=== PATIENT | female | born 1960 | race Caucasian/White ===

== ENCOUNTER 2017-03-05 05:45 | Day surgery (SDC) | payer OTHER ==
[~2017-03-05] VITALS: Ht 167.6 cm; Wt 74.4 kg
[~2017-03-05 05:45] MED LIST: BIOTIN5 M1 PO; CINNAMON500 MG PO; CIPRO500 MG PO; DIFLUCAN200 MG PO; GLUCOPHAGE500 MG PO; LISINOPRIL-HCT1 EAC2 PO; LORAZEPAM1 MG PO; MAGNESIUM400 M1 PO; NORCO 5-325 TA1 EACH PO; ONCE DAILY1 EACH PO; ONDANSETRON ODT8 MG PO; PEPCID20 MG PO; STOOL SOFTENER100 M1 PO
--- NOTE | 2017-03-05 06:33 | NUR ---
comfortable denies any needs. iv patent.
--- NOTE | 2017-03-05 07:22 | NUR ---
TO BR AND WARM BLANKET ON ON RETURN TO BED.
--- NOTE | 2017-03-05 09:05 | NUR ---
03/05/17 0905 Oneida Guthrie 0843 RESP EVEN AND UNLABORED. 0846 O2 SAT 100%, O2 REMOVED. 0854 PT REPORTS PAIN 05/27, PAIN MEDICATION 0900 PT REPORTS PAIN, "A LITTLE WORSE." PAIN MEDICAITON GIVEN. OT TALKING AND SITTING UP IN BED DRINKING WATER.
--- NOTE | 2017-03-05 14:32 | OR ---
[facility] [address] [place], [place] [address] Signed DATE OF OPERATION: 03/05/2017 SURGEON: Denise Flor MD PREOPERATIVE DIAGNOSES: 1. Right subclavian Twga-P-Aiflhjwa. 2. History of B-cell lymphoma. POSTOPERATIVE DIAGNOSES: 1. Right subclavian Glhi-Y-Pddwsbsf. 2. History of B-cell lymphoma. PROCEDURE: Removal of right subclavian Hxbx-Q-Hogpiufm. ESTIMATED BLOOD LOSS: None. FINDINGS: The Jjyv-V-Kdufjvbz was fractured next to the hub. I did not see anywhere underneath the clavicle where it may have been fractured. The entire length of the catheter and hub were removed confirmed by the radiopaque tip on the catheter. INDICATIONS: Ezequiel is a 56-year-old female, who we diagnosed with B-cell lymphoma back in 2015. I placed her Hpet-N-Fgvcjejm in June of 2015. She has been through her chemotherapy. She is now on maintenance therapy. When they accessed her Ixkz-X-Vmlgfezo the last time, it was leaking around the hub. There was a question whether or not there could be a tiny leak underneath the right clavicle as well. In the office, I met with Ezequiel and her . We discussed the above findings in detail. I explained to them the concept of a fractured catheter and the idea that sometimes they have to be retrieved using an angiogram. Otherwise, we removed them with IV sedation and local anesthetic. They understand the nature of the surgery along with the risks including, but not limited kalli bleeding, infection, scarring, change in contour of the skin, fracture of the catheter as well as embolization requiring retrieval. They had expressed understanding and wished to proceed. PROCEDURE NOTE: I met with Ezequiel and her in the preop area. We all confirmed her catheter on the right chest wall. She was then taken into the operating room and placed in the Electronically Signed By: DENISE FLOR MD 03/05/17 1432 PATIENT NAME: EZEQUIEL LOPEZ OPERATIVE REPORT DATE OF : 64 PHYSICIAN: DENISE FLOR MD REPORT #: [id number] REPORT IS CONFIDENTIAL AND NOT TO BE RELEASED WITHOUT AUTHORIZATION [facility] [address] [place], [place] [address] Signed supine position under monitored anesthesia care per our nurse school photographs detailer. She was then prepped and draped in the usual sterile fashion. She was given preoperative antibiotics along with subcutaneous heparin. SCDs were utilized. She was then prepped and draped in the usual sterile fashion. Local anesthetic was then injected in around the catheter hub. We utilized her previous incision and opened that sharply with our #15 blade knife. This was carried down around the catheter bluntly and with the cautery. The three Prolene sutures were divided. We placed a 2-0 Prolene pursestring suture around the catheter, as it entered the tissue underneath the clavicle. The catheter was easily withdrawn without any resistance whatsoever. The pursestring suture was tied down immediately to prevent any air embolization or backbleeding. We inspected the hub and catheter carefully. There was a fracture just distal to the hub within a centimeter. However, we did not see any fracture in the catheter that would be underneath the clavicle. We confirmed the full length of the catheter including the radiopaque tip. After this, the wound was irrigated and suctioned out until clear. We closed the dermis with interrupted 3-0 Monocryl sutures. The skin edges were reapproximated with a running 6-0 fast absorbing plain gut suture. Dry gauze and tape were then applied. Ezequiel was then transferred to her hospital bed and taken to recovery room in stable condition. Denise Flor MD ALB/MODL /[id number] cc: DO Noam Aponte MD Electronically Signed By: DENISE FLOR MD 03/05/17 1432 PATIENT NAME: EZEQUIEL LOPEZ OPERATIVE REPORT DATE OF : 64 PHYSICIAN: DENISE FLOR MD REPORT #: [id number] REPORT IS CONFIDENTIAL AND NOT TO BE RELEASED WITHOUT AUTHORIZATION
[2017-04-02] MEDS ORDERED: ATIVAN1 MG PO (08:49)
[2017-04-02] MEDS ORDERED: AMBIEN5 MG PO (08:51)
== END 2017-03-05 09:58 | disposition home or self-care (01) ==
LOC: OPS 05:45 → DS 05:45
PROVIDERS: Colon & Rectal Surgery
PROC: 0JPT3WZ Removal of Totally Implantable Vascular Access Device from Trunk Subcutaneous Tissue and Fascia, Percutaneous Approach (ICD-10-PCS; principal; 2017-03-05 06:45)
DX: Z45.2 Encounter for adjustment and management of vascular access device (principal); I10 Essential (primary) hypertension; E78.5 Hyperlipidemia, unspecified; G40.909 Epilepsy, unspecified, not intractable, without status epilepticus; I42.9 Cardiomyopathy, unspecified; E11.9 Type 2 diabetes mellitus without complications; E11.42 Type 2 diabetes mellitus with diabetic polyneuropathy; Z85.72 Personal history of non-Hodgkin lymphomas; Z85.41 Personal history of malignant neoplasm of cervix uteri; Z98.51 Tubal ligation status; Z88.8 Allergy status to other drugs, medicaments and biological substances; Z98.890 Other specified postprocedural states; Z79.899 Other long term (current) drug therapy
CPT/HCPCS: 00532; J0690; J1644; J2405; J2704; J3010; J7120

== ENCOUNTER 2017-03-15 20:35 | Emergency (ER) | payer OTHER ==
[~2017-03-15] VITALS: Ht 167.6 cm; Wt 74.4 kg
[2017-03-15] MEDS ORDERED: MAGNESIUM500 MG PO (23:11)
[2017-03-15] MEDS ORDERED: AZO STANDARD97.5 MG PO (23:12)
[2017-03-15] MEDS ORDERED: GLUCOSAMINE S1000 M1 PO (23:12)
[2017-03-15] MEDS ORDERED: VITAMIN C1000 MG PO (23:12)
[2017-03-15] MEDS ORDERED: KEFLEX500 MG PO (23:30)
[2017-03-15] MEDS ORDERED: PYRIDIUM200 MG PO (23:30)
[2017-04-02] MEDS ORDERED: ATIVAN1 MG PO (08:49)
[2017-04-02] MEDS ORDERED: AMBIEN5 MG PO (08:51)
== END 2017-03-15 23:42 | disposition home or self-care (01) ==
LOC: ED 20:35
DX: N39.0 Urinary tract infection, site not specified (principal); Z88.1 Allergy status to other antibiotic agents; Z79.899 Other long term (current) drug therapy
CPT/HCPCS: 81001; 87088; 99283

== ENCOUNTER 2019-01-22 08:18 | Emergency (ER) | payer OTHER ==
[~2019-01-22] VITALS: Ht 167.6 cm; Wt 70.3 kg
[~2019-01-22 08:18] MED LIST changes: +AMBIEN5 MG PO; +APPLE CIDER VI300 MG PO; +ATIVAN1 MG PO; +AZO STANDARD97.5 MG PO; +GLUCOSAMINE S1000 M1 PO; +KEFLEX500 MG PO; +MAGNESIUM500 MG PO; +OMEGA 3 1,0001 EACH PO; +OSTEO BI-FLEX1 EAC2 PO; +POTASSIUM99 M1 PO; +PYRIDIUM200 MG PO; +TYLENOL325 MG PO; +VITAMIN B COMP1 EACH PO; +VITAMIN B-150 MG PO; +VITAMIN B-650 MG PO; +VITAMIN B122500 MC1 PO; +VITAMIN C1000 MG PO
== END 2019-01-22 11:45 | disposition home or self-care (01) ==
LOC: ED 08:18
DX: J10.1 Influenza due to other identified influenza virus with other respiratory manifestations (principal); Z88.1 Allergy status to other antibiotic agents; Z79.899 Other long term (current) drug therapy; Z79.84 Long term (current) use of oral hypoglycemic drugs
CPT/HCPCS: 85025; 87081; 87502; 87880; 96374; 99283-25; J1885; J7030

== ENCOUNTER 2020-04-05 10:20 | Day surgery (SDC) | payer OTHER ==
[~2020-04-05] VITALS: Ht 167.6 cm; Wt 65.0 kg
[~2020-04-05 10:20] MED LIST changes: +ZOLPIDEM TARTRA10 MG PO
--- NOTE | 2020-04-05 11:16 | NUR ---
LAST WEEK HAD SIEZURE AND FELL. BRUISING L UPPER ARM.
--- NOTE | 2020-04-05 12:17 | NUR ---
04/05/20 Niecy Sequeira 1208-PATIENT ARRIVED TO PACU ON 2L NC RR EVEN LAYING PRONE AROUSES TO VERBAL STIMULI DROWSY DENIES PAIN OR NAUSEA. DRESSING TO BACK CDI WITH BANDAID IVF INFUSING. 1215-GLUCOSE CHECKED 92. PATIENT DENIES PAIN OR NAUSEA. PLACED ON RA RR EVEN 100%
--- NOTE | 2020-04-10 13:55 | PATH ---
[facility] [address] [facility] [address] [place], [place] [address] Signed SPECIMEN(S): A BONE MARROW - CORE SPECIMEN(S): B BONE MARROW - ASPIRATION SPECIMEN(S): C COMPREHENSIVE FLOW CYTOMETRY ONLY IN BM EDTA CLINICAL HISTORY: Bone marrow biopsy. 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 See attached. E83.42 (hypomagnesemia) DIAGNOSIS SUMMARY: A. Peripheral blood - Pancytopenia, absolute neutrophil count is 1,540/ul. - No circulating blasts or atypical lymphocytes are identified. B. Bone marrow biopsy and aspiration: - Normocellular marrow, 35%, with 1% blasts. - Trilineage hematopoiesis with erythroid hyperplasia and mild myeloid dyspoiesis. - No malignancy is identified by morphology, flow cytometry, or immunohistochemistry staining. - Increased marrow iron stores. No ring sideroblasts are identified. - See Diagnostic Comment. DIAGNOSTIC COMMENT: No lymphoma or other malignancy is detected by morphology, flow cytometry, or immunohistochemistry staining. The erythroid hyperplasia and the myeloid hypoplasia with mild dyspoiesis are likely related to recent chemotherapy. Clinical correlation is required. JLP:C2NR HISTORICAL SUMMARY: 59-year-old female with 2016 history of left axillary lymph node follicular lymphoma (see [id number]; 07/07/2015). Clinically, there is concern of transformation to DLBCL. This bone marrow is for diagnosis and re-staging. PERIPHERAL BLOOD: HEMOGRAM (04/05/2020): WBC 3.5 K/ul, RBC 2.90 M/ul, HGB 8.5 g/dl, HCT 25.0%, MCV 86.3 fl, MCH 29 pg, MCHC 34 g/dl, PLT 82 K/ul. AUTOMATED DIFFERENTIAL COUNT: Neutrophils 44.0%, lymphocytes 35.9%, monocytes 18.5%, eosinophils 1.1%, basophils 0.5%. The red blood cells are normocytic and normochromic with minimal PATIENT NAME: EZEQUIEL LOPEZ PATHOLOGY DATE OF : 64 REPORT #: [id number] PHYSICIAN: ANNE PATHOLOGY PCP: SKYLA FORREST DO REPORT IS CONFIDENTIAL AND NOT TO BE RELEASED WITHOUT AUTHORIZATION [facility] [address] [place], [place] [address] Signed anisopoikilocytosis. The neutrophils are unremarkable. Lymphocytes are composed of small mature appearing forms. Platelets appear decreased in number. No platelet clumping or RBC microangiopathic effect identified. No blasts are identified. BONE MARROW: ASPIRATE SMEARS/TOUCH IMPRINT: The aspirate smears are adequate for evaluation. Erythroid precursors are increased in number but show adequate maturation with essentially normal morphology. The myeloid precursors are left shifted in maturation with some dyspoietic morphology. There is no increase in blasts. Megakaryocytes are identified with a normal morphology. BONE MARROW DIFFERENTIAL COUNT (300 cells): Blasts 1%, promyelocytes 3%, myelocytes 7%, metamyelocytes/bands/segs 14%, erythroid precursors 60%, lymphocytes 7%, monocytes 4%, eosinophils 3%, plasma cells 1%. M:E ratio: Inverted at 0.46:1 BONE MARROW CORE BIOPSY/ASPIRATE CLOT/CELL BLOCK: The aspirate clot section is mostly blood with a small marrow spicule and is sub-optimal for evaluation. The core biopsy demonstrates unremarkable trabecular bone. The cellularity is normal for age, estimated at 35%. The erythroid precursors are increased in numbers. The myeloid precursors are decreased in number with a left shifted maturation and with mild dyspoiesis. Blasts are not increased. Megakaryocytes appear normal in number and in morphology. No granulomas, atypical lymphoid aggregates or foreign malignant cells are detected. SPECIAL STAINS (with adequate controls): - Iron (aspirate smear): Increased. No ring sideroblasts are identified. - Iron (aspirate clot): Increased. IMMUNOHISTOCHEMISTRY STAINS (performed on block A1 with adequate controls). - PAX 5 (B-cells): less than 1%, no atypical aggregates - CD3 (T-cells): 4-5%, no atypical aggregates. FLOW CYTOMETRY: Bone marrow, flow cytometry: - No diagnostic abnormal populations are identified by flow cytometry. - See Comment. COMMENT: The majority of the gated lymphocytes are T-cells with a normal marking pattern. No significant number of B-cells are identified. Blasts are mildly increased at 2.7% with no aberrant marking. No aberrant marking is detected in the myeloid or monocyte gate areas. Plasma PATIENT NAME: EZEQUIEL LOPEZ PATHOLOGY DATE OF : 64 REPORT #: [id number] PHYSICIAN: ANNE PATHOLOGY PCP: SKYLA FORREST DO REPORT IS CONFIDENTIAL AND NOT TO BE RELEASED WITHOUT AUTHORIZATION [facility] [address] [facility] [address] [place], [place] [address] Signed cells are not increased. FLOW CYTOMETRY ANALYSIS: FLOW DIFFERENTIAL (% Total CD45 vs. SSC gating): Myeloid 67%; Lymphoid 12%; Monocyte 4%; Dim CD45/Blast: 2.7%. Cell Count: 5.1 x 10*3/uL. POPULATION ANALYSIS: BLASTS: Analysis of the dim CD45 gate demonstrates 2.7% myeloblasts by CD34/CD117. LYMPHOID CELLS: The lymphocyte gate comprises 12% of total events and includes 89% T-cells with a CD4:CD8 ratio of 1.6:1 and normal krishnan T-cell antigen expression. B-cells are essentially absent. The remainders are NK-cells. MYELOID CELLS: The myeloid population comprises 67% of the total events. Some decreased SSC, some decreased CD10 expression and an atypical maturation pattern in the CD13 vs CD16 plot are observed. MONOCYTES: The monocyte population comprises 4% of the total events. Monocytes are not increased. Some increased expression of CD56 is observed. PLASMA CELLS: 0.2% plasma cells are detected in the screening gate neg-dimCD45/CD38. Plasma cells are CD45 dim and positive for CD19. ANTIBODIES USED: KAPPA, LAMBDA, CD20, CD10, CD19, CD23, CD38, FMC7, CD16, CD56, CD8, CD5, CD2, CD4, CD7, CD3, CD14, CD33, CD13, HLADR, CD34, CD117, CD15, CD45: TOTAL ANTIBODIES USED: 24. JNB FINAL DIAGNOSIS PERFORMED BY: Shahriar Lynn MD, Apr 06 2020 11:56AM GROSS DESCRIPTION: Two specimens are received in two containers, labeled "SS." A. The specimen, labeled "SS, core," is received in formalin and consists of two cores of brown-whitman bone (0.9-1.8 cm in length x 0.2 cm in diameter). The specimen is submitted entirely in cassette (A1) following decalcification in Immunocal. B. The specimen, labeled "SS, clot," is received in formalin and consists of a portion of red-brown clot (1.5 x 1.5 x 0.3 cm in aggregate). The specimen is submitted entirely in cassette (B1). AC (under the direct supervision of a pathologist) The Gross Description was prepared using a voice recognition system. The report was reviewed for accuracy; however, sound-alike word errors, addition and/or deletions may occur. If there is any question about this report, please contact Client Services. PATIENT NAME: EZEQUIEL LOPEZ PATHOLOGY DATE OF : 64 REPORT #: [id number] PHYSICIAN: ANNE MICHAELS PCP: SKYLA FORREST DO REPORT IS CONFIDENTIAL AND NOT TO BE RELEASED WITHOUT AUTHORIZATION [facility] [address] [place], [place] [address] Signed ADDITIONAL NOTES: Immunohistochemical and/or in situ hybridization studies were performed on this case with the appropriate positive controls that react as expected. This test was developed and its performance characteristics determined by [facility]. It has not been cleared or approved by the U.S. Food and Drug Administration. The FDA has determined that such clearance or approval is not necessary. This test is used for clinical purposes. It should not be regarded as investigational or for research. [facility] is certified under the Clinical Laboratory Improvement Amendments of 1988 (CLIA) as qualified to perform high complexity clinical laboratory testing. In this case, certain antibodies were performed by both immunohistochemistry and flow cytometry analysis because flow cytometry analysis did not fully explain all the light microscopic findings. Immunohistochemistry aided in the analysis. Both methods are deemed medically necessary in this case. This test was developed and its performance characteristics determined by [facility]. It has not been cleared or approved by the US Food and Drug Administration. The FDA does not require this test to go through premarket FDA review. This test is used for clinical purposes. It should not be regarded as investigational or for research. This laboratory is certified under the Clinical Laboratory Improvement Amendments (CLIA) as qualified to perform high complexity clinical laboratory testing. PERFORMING LABORATORY: The technical component was performed by [facility], [address] [place] [address] (Remarketing Manager: Ash Oliver D.O.; CLIA#: [id number]). Professional interpretation [place] [address]. A portion of the technical component was performed by [facility], [address] [place] [address] (Remarketing Manager: Monica Leggett MD; CLIA# [id number]). A portion of the technical component was performed by [facility], [address] [place] [address] (Remarketing Manager: Ash Oliver D.O.; CLIA#: [id number]). [facility], [address] [place] [address]. PATIENT NAME: EZEQUIEL LOPEZ PATHOLOGY DATE OF : 64 REPORT #: [id number] PHYSICIAN: ANNE MICHAELS PCP: SKYLA FORREST DO REPORT IS CONFIDENTIAL AND NOT TO BE RELEASED WITHOUT AUTHORIZATION [address] [address] Signed IMAGES: A: [id number] A: [id number] Diagnostician: Shahriar Lynn MD Pathologist Electronically Signed 04/10/2020 Copies: ~ PATIENT NAME: EZEQUIEL LOPEZ PATHOLOGY DATE OF : 64 REPORT #: [id number] PHYSICIAN: ANNE PATHOLOGY PCP: SKYLA FORREST DO REPORT IS CONFIDENTIAL AND NOT TO BE RELEASED WITHOUT AUTHORIZATION
== END 2020-04-05 13:00 | disposition home or self-care (01) ==
LOC: DS 10:20
PROVIDERS: ATTEND Specialist
PROC: 07DR3ZX Extraction of Iliac Bone Marrow, Percutaneous Approach, Diagnostic (ICD-10-PCS; principal; 2020-04-05 12:00)
DX: C83.33 Diffuse large B-cell lymphoma, intra-abdominal lymph nodes (principal); E83.42 Hypomagnesemia; E87.6 Hypokalemia; D70.9 Neutropenia, unspecified; Z92.21 Personal history of antineoplastic chemotherapy
CPT/HCPCS: 80053; 83615; 83735; 85025; G0500; J2250; J3010; J7121